=== PATIENT | male | born 1950 | race Caucasian/White ===

== ENCOUNTER 2018-06-22 09:36 | Inpatient (IN) | payer OTHER ==
[~2018-06-22] VITALS: Ht 170.2 cm; Wt 62.8 kg
[2018-06-22 09:51] VITALS: Ht 170.2 cm; Wt 62.8 kg
[2018-06-22 11:17] LABS: CALCIUM 8.8 mg/dL (8.5-10.1); CARBON DIOXIDE 23.1 mmol/L (21-32); CHLORIDE SERUM 104 mmol/L (98-107); CREATININE SERUM 1.2 mg/dL (0.7-1.3); GFR1 > 60 mL/min; GLUCOSE SERUM 224 mg/dL (74-106); POTASSIUM SERUM 4.1 mmol/L (3.5-5.1); SODIUM SERUM 136 mmol/L (136-145)
[2018-06-22 11:25] LABS: BASOPHIL % 0.3 % (0-2); PLATELET COUNT 143 x10^3mcL (130-400); RED CELL DISTRIBUTION WIDTH 13.7 % (11.5-14.5)
[2018-06-22 11:40] LABS: ALBUMIN 4.5 g/dL (3.4-5.0); ALKALINE PHOSPHATASE 67 U/L (46-116); ALT/SGPT 32 U/L (16-63); AMYLASE 55 U/L (25-115); AST/SGOT 20 U/L (15-37); BILIRUBIN TOTAL 0.6 mg/dL (0.20-1.00); CHOLESTEROL 156 mg/dL (<200); HDL CHOLESTEROL 44 mg/dL (40-60); LIPASE 121 IU/L (73-393); MAGNESIUM 2.1 mg/dL (1.8-2.4); T4(THYROXINE) 8.6 ug/dL (4.7-13.3); TOTAL PROTEIN, SERUM 7.5 g/dL (6.4-8.2)
[2018-06-22 11:42] LABS: UA SPECIFIC GRAVITY >=1.030 (1.005-1.035); microscopic required? YES; urine erythrocyte TRACE (NEGATIVE)
[2018-06-22 12:05] LABS: AMPHETAMINE QUAL UR NONE DETECTED (See below)
[2018-06-22] MEDS ORDERED: GLIPIZIDE2.5 M1 (12:40)
[2018-06-22 14:53] VITALS: BP 105/61
[2018-06-22 16:20] VITALS: BP 103/60
[2018-06-23 05:48] VITALS: BP 113/56
[2018-06-23 07:09] LABS: CALCIUM 8.2 mg/dL (8.5-10.1); CARBON DIOXIDE 20.8 mmol/L (21-32); CHLORIDE SERUM 107 mmol/L (98-107); GFR1 > 60 mL/min; GLUCOSE SERUM 136 mg/dL (74-106); SODIUM SERUM 138 mmol/L (136-145)
[2018-06-23 08:12] LABS: BASOPHIL % 0.3 % (0-2); RED CELL DISTRIBUTION WIDTH 14.1 % (11.5-14.5)
[2018-06-23 08:14] LABS: PLATELET COUNT 114 x10^3mcL (130-400)
[2018-06-23 09:31] VITALS: BP 124/59
[2018-06-23 13:18] VITALS: BP 158/76
[2018-06-23 17:17] VITALS: BP 134/69
[2018-06-23 18:46] VITALS: BP 134/69
== END 2018-06-23 19:28 | disposition home health service (06) | DRG 563 ==
LOC: ED 09:36 → DU 12:18 → EDBEDREQ 12:19 → DU 14:24
PROVIDERS: Emergency Medicine; Internal Medicine
PROC: 0PSHXZZ Reposition Right Radius, External Approach (ICD-10-PCS; principal; 2018-06-22)
DX: S52.501A Unspecified fracture of the lower end of right radius, initial encounter for closed fracture (principal); S01.111A Laceration without foreign body of right eyelid and periocular area, initial encounter; S00.11XA Contusion of right eyelid and periocular area, initial encounter; R42 Dizziness and giddiness; E11.65 Type 2 diabetes mellitus with hyperglycemia; W01.0XXA Fall on same level from slipping, tripping and stumbling without subsequent striking against object, initial encounter; Y92.009 Unspecified place in unspecified non-institutional (private) residence as the place of occurrence of the external cause
CPT/HCPCS: 82962; 83880; 90715; J1644; J1815; J3010; J3490; J7030; J7620; J7626; Q0092

== ENCOUNTER 2019-04-04 22:52 | Observation (INO) | payer OTHER ==
[~2019-04-04] VITALS: Ht 170.2 cm; Wt 56.7 kg
[~2019-04-04 22:52] MED LIST: GLIPIZIDE2.5 M1
[2019-04-04 22:57] VITALS: Ht 170.2 cm; Wt 56.7 kg
--- NOTE | 2019-04-04 23:03 | NUR ---
PT BIB [facility] AND ASSISTED TO BED. VS DONE AND MONITOR APPLIED. PT MEDICS, PT WAS FOUND BY FAMILY IN ROOM WITH ALOC AND 911 WAS CALLED. UPON ARRIVAL, PT'S BLOOD SUGAR WAS NOTED TO BE IN 30'S BY [facility] WITH PT AWAKE AND ABLE TO ANSWER QUESTIONS. ORAL GLUCOSE GIVEN WITH SNACKS FROM HOME. PT RESTING IN BED, AAOX4 WITH C/O DIZZINESS. PT ALSO STATES HE HAS HAD A LOSS OF APPETITE WITH WEIGHT LOSS AND LOSS OF BALANCE WITH GENERALIZED WEAKNESS X 2 MONTHS. [facility] STATED BLOOD SUGAR CHECKED DURING IV INSERTION TO BE 80. PT DENIES ANY N/V/D/C, RESP ILLNESS, URINARY PROBLEMS OR FEVERS AT THIS TIME. NO SIGNS OF DISTRESS AT THIS TIME.
[2019-04-04 23:19] LABS: BASOPHIL % 0.5 % (0-2); PLATELET COUNT 159 x10^3mcL (130-400); RED CELL DISTRIBUTION WIDTH 13.7 % (11.5-14.5)
[2019-04-04 23:32] LABS: CALCIUM 8.4 mg/dL (8.5-10.1); CARBON DIOXIDE 21.3 mmol/L (21-32); CHLORIDE SERUM 105 mmol/L (98-107); CREATININE SERUM 1.1 mg/dL (0.7-1.3); GFR1 > 60 mL/min; GLUCOSE SERUM 138 mg/dL (74-106); POTASSIUM SERUM 3.7 mmol/L (3.5-5.1); SODIUM SERUM 139 mmol/L (136-145)
[2019-04-04 23:37] LABS: ALBUMIN 4.1 g/dL (3.4-5.0); ALKALINE PHOSPHATASE 55 U/L (46-116); ALT/SGPT 16 U/L (16-63); AST/SGOT 13 U/L (15-37); BILIRUBIN TOTAL 0.45 mg/dL (0.20-1.00); TOTAL PROTEIN, SERUM 7.1 g/dL (6.4-8.2)
[2019-04-05] MEDS ORDERED: GLIMEPIRIDE1 M1 PO (00:08)
[2019-04-05] MEDS ORDERED: BACLOFEN10 MG PO (00:09)
[2019-04-05] MEDS ORDERED: GLUCOPHAGE XR500 MG PO (00:09)
[2019-04-05] MEDS ORDERED: JANUVIA100 M1 PO (00:10)
[2019-04-05] MEDS ORDERED: MECLIZINE HYD12.5 MG PO (00:10)
[2019-04-05] MEDS ORDERED: MIDODRINE HYDRO10 M1 PO (00:11)
[2019-04-05] MEDS ORDERED: VITD PO (00:11)
[2019-04-05] MEDS ORDERED: NAPROXEN500 MG PO (00:12)
[2019-04-05] MEDS ORDERED: CRESTOR5 M1 PO (00:12)
--- NOTE | 2019-04-05 00:21 | NUR ---
PT RESTING IN BED WITH NO SIGNS OF DISTRESS AT THIS TIME.
--- NOTE | 2019-04-05 01:30 | NUR ---
PT RESTING COMFORTABLY ON GURNEY IN NAD, BREATHING EVEN AND UNLABORED. PT A&0X4, SPEAKING FULL CLEAR SENTENCES. RAISED HOB FOR PT COMFORT. WILL CONTINUE TO MONITOR.
[2019-04-05 02:00] LABS: MAGNESIUM 1.7 mg/dL (1.8-2.4); PHOSPHOROUS 3.4 mg/dL (2.5-4.9)
--- NOTE | 2019-04-05 02:36 | NUR ---
REPORT CALLED TO ZHANE FRANKS
--- NOTE | 2019-04-05 03:00 | NUR ---
PT ARIVED VIA GURNEY FROM ER ACCOMPANIED BY NURSE. PT AMBULATED FROM GURNEY TO BED WITH ASSISTANCE FROM RN, PT IS A/O X 4, NO COMPLAINTS OF MONTOYA, PT COMPLAINS OF DIZZINESS WHEN WALKING, PT TELE 13, NSR, PT DENIES CHEST PAIN, LUNG SOUNDS CTA, NO SOB AT THIS TIME, PT ORIENTED TO CONTROLS OF THE ROOM, ALL NEEDS ATTENDED TO AT THIS TIME, SAFETY PRECAUTIONS IN PLACE, WILL CONTINUE TO MONITOR
--- NOTE | 2019-04-05 03:07 | NUR ---
PT TRANSFERED TO TELE BED 207B AT THIS TIME IN NAD, BREATHING EVEN AND UNLABORED. PT A&0X4, SPEAKING FULL CLEAR SENTENCES. PT VERBALIZES UNDERSTANDING OF PLAN OF CARE. PT TRANSFERED VIA [facility] BY MYSELF AND EMT JAMES. PHELAN RN AT BEDSIDE TO ASSUME CARE OF PT. PT AMBULATED FROM RTROY TO BED WITH STEADY GAIT, WITH MINIMAL ASSISTANCE.
[2019-04-05 03:25] VITALS: BP 137/69
--- NOTE | 2019-04-05 05:12 | NUR ---
PT RESTED COMFORTABLY THROUGH NIGHT SINCE ADMISSION, PT DENIED PAIN THROUGH THE NIGHT, COMPLAINED OF SLIGHT DIZZINESS, PT EDUCATED TO USE CALL LIGHT AND ORIENTED TO CONTROLS, SAFETY PRECAUTIONS MAINTAINED THROUGH THE SHIFT WILL CONTINUE TO MONITOR AND ENDORSE CARE
--- NOTE | 2019-04-05 07:00 | NUR ---
RECEIVED BEDSIDE REPORT FROM PIPELINES SUPERVISOR NURSE AT THIS TIME. PATIENT RESTING COMFORTABLY IN BED. NO APPARENT DISTRESS OR DISCOMFORT NOTED. BREATHING EVEN AND UNLABORED. NO RESPIRATORY DISTRESS OR DISCOMFORT NOTED. PATIENT DENIES SHORTNESS OF BREATH. PATIENT DENIES CHEST PAIN/PRESSURE AT THIS TIME. IV PATENT AND INTACT. ALL QUESTIONS AND CONCERNS ADDRESSED. ALL NEEDS ATTENDED TO. WILL CONTINUE TO MONITOR
[2019-04-05 09:18] VITALS: BP 129/79
--- NOTE | 2019-04-05 09:59 | NUR ---
MORNING MEDICATION ADMINISTERED AT THIS TIME. PATIENT TOLERATED WELL. NO ADVERSE EFFECTS NOTED. ALL NEEDS ATTENDED TO. WILL CONTINUE TO MONITOR
--- NOTE | 2019-04-05 10:37 | NUR ---
SPOKE TO DR VERDUZCO AT THIS TIME REGARDING PATIENT C/O OF DIZZINESS AT THIS TIME. PER DR LUBA XIE TO INPUT TELEPHONE ORDER FOR ANTIVERT 25MG TID PRN AND ORDER CT OF HEAD W/O CONTRAST AT THIS TIME. TELEPHONE ORDER READ BACK, CONFIRMED, AND FOLLOWED THROUGH. ALL QUESTIONS AND CONCERNS ADDRESSED. ALL NEEDS ATTENDED TO. WILL CONTINUE TO MONITOR
--- NOTE | 2019-04-05 10:57 | NUR ---
PATIENT DOWN TO CT SCAN AT THIS TIME.
--- NOTE | 2019-04-05 11:06 | NUR ---
PATIENT BACK FROM CT SCAN AT THIS TIME. ALL NEEDS ATTENDED TO. WILL CONTINUE TO MONITOR
--- NOTE | 2019-04-05 12:00 | NUR ---
PATIENT BLOOD SUGAR 100 AT THIS TIME. NO INSULIN COVERAGE REQUIRED. ALL NEEDS ATTENDED TO. WILL CONTINUE TO MONITOR
[2019-04-05 12:43] VITALS: BP 123/78
--- NOTE | 2019-04-05 12:49 | NUR ---
PATIENT SITTING UP IN BED EATING LUNCH AT THIS TIME. PATIENT TOLERATING DIET WELL. NO APPARENT DISTRESS OR DISCOMFORT NOTED. ALL NEEDS ATTENDED TO. WILL CONTINUE TO MONITOR
--- NOTE | 2019-04-05 16:32 | NUR ---
PATIENT BLOOD SUGAR 129 AT THIS TIME. NO INSULIN COVERAGE REQUIRED AT THIS TIME. ALL NEEDS ATTENDED TO. WILL CONTINUE TO MONITOR
--- NOTE | 2019-04-05 17:36 | NUR ---
PATIENT SITTING UP IN BED EATING DINNER AT THIS TIME. PATIENT TOLERATING DIET WELL. NO APPARENT DISTRESS OR DISCOMFORT NOTED. ALL NEEDS ATTENDED TO. WILL CONTINUE TO MONITOR
[2019-04-05 17:40] VITALS: BP 129/86
--- NOTE | 2019-04-05 18:32 | NUR ---
PATIENT RESTING COMFORTABLY IN BED AT THIS TIME. NO APPARENT DISTRESS OR DISCOMFORT NOTED. IV PATENT AND INTACT TO PATIENT LFA. ALL QUESTIONS AND CONCERNS ADDRESSED. SAFETY PRECAUTIONS MAINTAINED. ALL NEEDS ATTENDED TO. WILL ENDORSE ALL CARE TO STICK FEEDER NURSE
--- NOTE | 2019-04-05 19:25 | NUR ---
PT RESTING IN BED COMFORTABLY, NO ACUTE DISTRESS AT THIS TIME, ASSESSMENT PERFORMED AT THIS TIME, PT IS A/OX4, NO COMPLAINTS OF MONTOYA OR DIZZINESS, PT STATED HE "HAD SOME DIZZINESS EARLIER TODAY, BUT NOTHING RIGHT NOW", PT DENIES PAIN OR SOB AT THIS TIME, ALL NEEDS ATTENDED TO, SAFETY PRECAUTIONS IN PLACE, WILL COTNIUE TO MONITOR
[2019-04-05 20:41] VITALS: BP 94/70
--- NOTE | 2019-04-05 22:34 | NUR ---
PT RESTING IN BED WITH EYES CLOSED, PT EASILY AROUSABLE TO VERBAL STIMULI, PT DENIES PAIN OR SOB AT THIS TIME, ALL NEEDS ATTENDED TO, WILL CONTINUE TO MONITOR
--- NOTE | 2019-04-06 00:15 | NUR ---
PT RESTING IN BED WITH EYES CLOSED NO ACUTE DISTRESS NOTED AT THIS TIME, PT EASILY AROUSABLE TO VERBAL STIMULI, PT IN NO PAIN IR SOB A TTHIS TIME, ALL NEEDS ATTENDED TO AT THIS TIME, WILL CONTINUE TO MONITOR
--- NOTE | 2019-04-06 03:05 | NUR ---
PT RESTING IN BED WITH EYES CLOSED, RESPIRATIONS EVEN AND UNLABORED, NO ACUTE DISTRESS NOTED. SAFETY PRECAUTIONS IN PLACE, WILL MONITOR
[2019-04-06 04:40] VITALS: BP 127/77
--- NOTE | 2019-04-06 05:09 | NUR ---
PT RESTED THROUGH THE NIGHT WITH NO DISTRESS, PT HAD NO EPISODES OF DIZZINESS OR VERTIGO DURING SHIFT, PT DENIED CHEST PAIN OR SOB THROUGH EVENING, SAFETY PRECAUTIONS MAINTAINED THROUGH SHIFT, WILL CONTINUE TO MONITOR AND ENDORSE CARE TO ONCOMING RN
[2019-04-06 06:27] LABS: CALCIUM 8.6 mg/dL (8.5-10.1); CARBON DIOXIDE 21.9 mmol/L (21-32); CHLORIDE SERUM 109 mmol/L (98-107); GFR1 > 60 mL/min; GLUCOSE SERUM 160 mg/dL (74-106); MAGNESIUM 2.1 mg/dL (1.8-2.4); SODIUM SERUM 143 mmol/L (136-145)
[2019-04-06 06:33] LABS: BASOPHIL % 0.6 % (0-2); PLATELET COUNT 141 x10^3mcL (130-400); RED CELL DISTRIBUTION WIDTH 14.3 % (11.5-14.5)
--- NOTE | 2019-04-06 07:15 | NUR ---
ALERT AND ORIENTED. BREATHING FREELY ON RA. DENIES ANY PAIN TELE # 13 NSR. FORGETFUL. GENERALIZED WEAKNESS. ABLE TO TURN AND REPOSITION. BRP W SUPERVISION ONLY. URINAL AT BEDSIDE. CALL LIGHT WITHIN REACH.
[2019-04-06 09:21] VITALS: BP 128/65
--- NOTE | 2019-04-06 12:38 | NUR ---
CALLED AND SPOKE TO AND MADE HIM AWARE THAT PER CASE MANAGEMENT, PT DOESN'T HAVE BENEFIT FOR SNF HALF-WAY CARE. NEW ORDER RECEIVED TO DO P.T. EVAL AND HOME HEALTH NURSING SAFETY EVAL. JOE RN ASSIGNED TO THIS PT MADE AWARE OF ABOVE.
[2019-04-06 13:46] VITALS: BP 135/82
--- NOTE | 2019-04-06 14:02 | NUR ---
1. Recommend continuing [facility] diet. 2. bilingual patient support caseworker contacted to provide information on nutrition assistance programs i.e SNAP, meals on wheels, food shah etc.
--- NOTE | 2019-04-06 14:02 | NUR ---
Initial Nutrition Assessment: /B MILANA KEENE IA HR Dx: ALOC, hypoglycemia PMHx: DM, Dementia (early) PSHx: none Labs: BG 160H, A1C 6.7H, HGB 11.8L Meds: Antivert, D 50%, humulin, zofran Diet: CCHO PO Intake: (04/05) breakfast, lunch 100% Ht: 170.18 cm (67") Wt: 56.6 kg (125#) BMI: 19.6 kg/m2 Bed scale: 55 kg IBW: 148# (67 kg) %IBW: 84 UBW: 135# Age: 68/M Food Allergies: NKFA Skin: intact Tenzin: 19 Edema: none GI: Last BM: 04/04 Trigger: unintentional weight loss of 10# x 1 month Per H&P, Pt is a 68-year-old Male with a history of early dementia who was brought in by EMS to the ED for a complaint of low blood sugar. The patient is reportedly a diabetic that takes oral medications but is unable to recall which medications. RDN Visit (04/06): Patient was alert and oriented and said that he lost about 10# x 1 month. Patient has been eating 100% of all his meals. Patient mentioned a little bit about his social situation. He said that he lives with his ex- who does not cook food for him. Patient said that he has problems with ambulation. He said that he eats mostly junk food from outside and when at home he eats crackers and cheese. Spoke with social worker palliative care Edelmira to give patient information about meals on wheels, farmers market coupons etc. Problem with: N/V/D/C: no Problems with: Chewing/Swallowing: none Current appetite: good Recent wt change: lost 10# x 1 month %wt change: 7 Vitamin/Supplement use: none Special diet at home: regular Physical activity: sedentary Nutrition education given: Diabetes diet education was provided using [facility] handout on 'Type 2 Diabetes Nutrition Therapy'. Concepts like high fiber diet, label reading, types of carbohydrates and portion control were discussed. Patient verbalized understanding and did not have any questions at this time. Food-drug interactions: none Education given: N/A Estimated Nutritional Needs Based on current body weight 55 kg Energy: 6784-4808 kcal/d (25-30 kcal/kg) Protein: 55-66 g/d (1.0-1.2 g/kg) - geriatric maintenance Fluid: 0086-5502 ml/d (1 ml/kcal) or per doctor Nutrition Diagnosis 1. 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 Inability to manage self-care related to lack of social support for implementing changes as evidenced by social circumstances described by the patient. Intervention 1. Recommend continuing [facility] diet. 2. calender worker helper contacted to provide information on nutrition assistance programs i.e SNAP, meals on wheels, food shah etc. Monitor/Evaluate Goal: PO intake at least 75% of estimated needs Monitor: PO intake, Labs, GI function F/U in 3-5 days as moderate risk 04/09-10
[2019-04-06] MEDS ORDERED: GLUCOPHAGE XR500 MG PO (14:39)
[2019-04-06 14:50] VITALS: BP 135/82
--- NOTE | 2019-04-06 15:43 | NUR ---
PT WILL BE DC'D TODAY. RETURNED TELE # 13 TO TELE STATION.
[2019-04-06 17:26] VITALS: BP 131/77
--- NOTE | 2019-04-06 18:16 | NUR ---
DC'D TO HOME. TO CALL PCP FOR F/U BIA IN1 WEEK. HOME HEALTH WILL CONTACT PT FOR HOME HEALTH VISIT. NO PRESCRIPTIONS. STOPPED GLYMIPRIDE. METFORMIN 500 MG PO DAILY. ALL DC INSTRUCTIONS REVIEWED WITH AND SIGNED BY PT .
== END 2019-04-06 17:54 | disposition home health service (06) | DRG 637 ==
LOC: ED 22:52 → DU 04-05 01:28
PROVIDERS: Emergency Medicine; Internal Medicine; ADMIT Internal Medicine Pulmonary Disease
DX: E11.649 Type 2 diabetes mellitus with hypoglycemia without coma (principal); G93.41 Metabolic encephalopathy; I10 Essential (primary) hypertension; G30.0 Alzheimer's disease with early onset; F02.80 Dementia in other diseases classified elsewhere, unspecified severity, without behavioral disturbance, psychotic disturbance, mood disturbance, and anxiety; Z79.84 Long term (current) use of oral hypoglycemic drugs
CPT/HCPCS: 82962; G0378; J1650; J3475; J7030; J8597

== ENCOUNTER 2020-02-15 10:02 | Emergency (ER) | payer OTHER ==
[~2020-02-15] VITALS: Ht 182.9 cm; Wt 40.8 kg
[~2020-02-15 10:02] MED LIST changes: +BACLOFEN10 MG PO; +CRESTOR5 M1 PO; +GLIMEPIRIDE1 M1 PO; +GLUCOPHAGE XR500 MG PO; +JANUVIA100 M1 PO; +MECLIZINE HYD12.5 MG PO; +MIDODRINE HYDRO10 M1 PO; +NAPROXEN500 MG PO; +VITD PO
[2020-02-15 10:07] VITALS: Ht 182.9 cm; Wt 40.8 kg
[2020-02-15 10:57] LABS: BASOPHIL % 0.3 % (0-2); PLATELET COUNT 160 x10^3mcL (130-400)
[2020-02-15 11:06] LABS: RED CELL DISTRIBUTION WIDTH 14.7 % (11.5-14.5)
[2020-02-15 11:09] LABS: CALCIUM 9.6 mg/dL (8.5-10.1); CARBON DIOXIDE 22.3 mmol/L (21-32); CREATININE SERUM 1.3 mg/dL (0.7-1.3); POTASSIUM SERUM 3.8 mmol/L (3.5-5.1)
[2020-02-15 14:01] VITALS: BP 121/61
== END 2020-02-15 14:01 | disposition home or self-care (01) ==
LOC: ED 10:02
PROVIDERS: Emergency Medicine
DX: T14.90XA Injury, unspecified, initial encounter (principal); W17.89XA Other fall from one level to another, initial encounter; Z91.81 History of falling; Y93.89 Activity, other specified; Y92.89 Other specified places as the place of occurrence of the external cause; Y99.8 Other external cause status
CPT/HCPCS: 36415